=== PATIENT | male | born 1965 | race Caucasian/White ===

== ENCOUNTER 2018-10-31 09:56 | Day surgery (SDC) | payer OTHER ==
[2018-10-31] MEDS ORDERED: FENTAnyl 50 MCG/ML VIAL (12:46)
[2018-10-31] MEDS ORDERED: MIDAZOLAM 1 MG/ML 2 ML INJ ×2 (12:46)
== END 2018-10-31 14:02 | disposition home or self-care (01) ==
LOC: GIL 09:56
DX: Z12.11 Encounter for screening for malignant neoplasm of colon (principal); D12.2 Benign neoplasm of ascending colon; K57.30 Diverticulosis of large intestine without perforation or abscess without bleeding
CPT/HCPCS: 45380; 88305